=== PATIENT | male | born 1995 | race Two or more races ===

== ENCOUNTER 2018-01-28 14:19 | Emergency (ER) | END 2018-01-28 15:37 | disposition left against medical advice (07) ==

== ENCOUNTER 2018-03-10 08:31 | Emergency (ER) | END 2018-03-10 10:37 | disposition home or self-care (01) ==

== ENCOUNTER 2018-06-14 03:15 | Emergency (ER) | END 2018-06-14 07:34 | disposition home or self-care (01) ==

== ENCOUNTER 2018-08-01 21:55 | Emergency (ER) | END 2018-08-01 23:37 | disposition home or self-care (01) ==

== ENCOUNTER 2019-01-06 17:07 | Emergency (ER) | payer OTHER ==
[~2019-01-06] VITALS: Ht 170.2 cm; Wt 86.0 kg
[~2019-01-06 17:07] MED LIST: AMOX1TAB10 PO; BENZ-6 PO; CETI10CA PO; D-ME473S2 PO; IBUP-1542 PO; IBUP800T48 PO
[2019-01-06 17:44] VITALS: BP 137/73; PULSE 77; RESP 20; Ht 170.2 cm; Wt 86.0 kg
--- NOTE | 2019-01-06 20:59 | ERD ---
ER Documentation Chief Complaint Chief Complaint c/o flu like symptoms x2 weeks HPI This is a 23-year-old male who presents emergency department with complaints of cough and colds for about 2 weeks. Denies headache, head injury, loss of consciousness, dizziness, neck pain, neck stiffness, throat pain, difficulty swallowing, difficulty breathing lying flat, shoulder pain, chest pain, back pain, abdominal pain, nausea, vomiting, constipation, diarrhea, urinary symptoms, loss of bowel and bladder control, trauma, injury, falls, difficulty walking due to pain, numbness or tingling sensation, calf pain, recent travel, recent major surgery in the last 3 weeks, calf pain, recent long travel, recent exposure to any illness, recent antibiotic use in the last 3 months, fever, chills, seizures. Past medical history: Surgical history: Social: Denies smoking, use of alcoholic beverages, use of illegal drugs. ROS All systems reviewed and are negative except as per history of present illness. Medications Home Meds Active Scripts Benzonatate* (Tessalon Perle*) 100 Mg Capsule, 100 MG PO Q8H PRN for COUGH, #20 CAP Prov:SUPALILLYDILIPVIVIANA F 01/06/19 Azithromycin* (Zithromax*) 250 Mg Tablet, 250 MG PO .ZPACK DIRECTED, #6 TAB TAKE 500 MG (2 TABS) THE FIRST DAY THEN 250 MG (1 TAB) DAYS 2-5 Prov:DILIP KUMARVIVIANA F 01/06/19 Ibuprofen* (Motrin*) 600 Mg Tab, 600 MG PO Q6, #30 TAB Prov:RYAN MUÑOZ PA-C 08/01/18 Benzonatate* (Tessalon Perle*) 100 Mg Capsule, 100 MG PO Q8H PRN for COUGH, #20 CAP Prov:RYAN MUÑOZ PA-C 08/01/18 Dextromethorphan Hb-Promethazine Hcl* (Promethazine DM* Syrup) 473 Ml Syrup, 5 ML PO Q6 PRN for COUGH, #1 BOT Prov:RYAN MUÑOZ PA-C 08/01/18 Amoxicillin/Potassium Clav (Amox-Clav 875-125 mg Tablet) 875-125 mg Tab, 1 TAB PO BID for 7 Days, #14 TAB Prov:RYAN MUÑOZ PA-C 08/01/18 Cetirizine Hcl* (Zyrtec*) 10 Mg Capsule, 10 MG PO DAILY, #10 TAB.CHEW Prov:TONIRYAN PRICE 06/14/18 Dextromethorphan Hb-Promethazine Hcl* (Promethazine DM* Syrup) 473 Ml Syrup, 5 ML PO Q6 PRN for COUGH, #4 OZ Prov:TONIRYAN SINC 06/14/18 Benzonatate* (Tessalon Perle*) 100 Mg Capsule, 100 MG PO Q8H PRN for COUGH, #20 CAP Prov:TONIRYAN SINC 06/14/18 Ibuprofen* (Motrin*) 800 Mg Tab, 800 MG PO Q6H PRN for PAIN AND OR ELEVATED TEMP, #30 TAB Prov:MARIELLA GRAJEDA. [employer] 03/10/18 Allergies Allergies: Coded Allergies: No Known Allergy (Unverified , 08/01/18) PMhx/Soc Medical and Surgical Hx: pt denies Medical Hx, pt denies Surgical Hx Hx Alcohol Use: No Hx Substance Use: No Hx Tobacco Use: Yes (1pack/day) Smoking Status: Current every day smoker Physical Exam Vitals Vital Signs Date Temp Pulse Resp B/P (MAP) Pulse Ox O2 O2 Flow FiO2 Time Delivery Rate 01/06/19 97.9 77 20 137/73 98 17:44 (94) Physical Exam Const: No acute distress Head: Atraumatic Eyes: Normal Conjunctiva ENT: Normal External Ears, Nose and Mouth. Neck: Full range of motion. No meningismus. Resp: Clear to auscultation bilaterally Cardio: Regular rate and rhythm, no murmurs Abd: Soft, non tender, non distended. Normal bowel sounds Skin: No petechiae or rashes Back: No midline or flank tenderness Ext: No cyanosis, or edema Neur: Awake and alert. No neurological deficits. Psych: Normal Mood and Affect Procedures/MDM Diagnostic tests: Chest x-ray: No evidence for active cardiopulmonary disease. Treatment: Not applicable. Re-evaluation: No distress. Differential diagnosis I have low suspicion for sepsis, pneumonia. Final diagnosis: Bronchitis. Prescription: Azithromycin. Seb Vega. Follow-up with PCP in the next 24-48 hours. Come back here in the emergency department for any new symptoms or any worsening symptoms. All questions and concerns were answered. Patient and family members verbalized understanding and agreed with plan of care. Hemodynamically stable on discharge. Departure Diagnosis: Primary Impression: Bronchitis Condition: Stable Additional Instructions: Follow-up with PCP in the next 24-48 hours. Come back here in the emergency department for any new symptoms or any worsening symptoms. ERMA KUMAR Jan 06, 2019 20:59
[2019-01-06] MEDS ORDERED: BENZ-6 PO (22:22)
[2019-01-06] MEDS ORDERED: AZIT250T PO (22:22)
== END 2019-01-06 22:33 | disposition home or self-care (01) ==
LOC: FTE 17:07
DX: J40 Bronchitis, not specified as acute or chronic (principal); F17.210 Nicotine dependence, cigarettes, uncomplicated
CPT/HCPCS: 71046; Z7502